=== PATIENT | male | born 1945 | race Caucasian/White ===

== ENCOUNTER 2017-01-19 08:44 | Emergency (ER) | payer OTHER ==
[~2017-01-19] VITALS: Ht 177.8 cm; Wt 91.0 kg
[~2017-01-19 08:44] MED LIST: ADULT LOW DOSE81 M1 PO; ALPRAZOLAM0.25 M2 PO; AMITRIPTYLINE H25 MG PO; AMLODIPINE BESYL5 MG PO; ANTIVERT25 MG PO; ASPIR 8181 M1 PO; ASPIR-LOW81 MG PO; BACLOFEN10 MG PO; CENTRUM SILVER1 EAC1 PO; CENTRUM SILVER1 EAC3 PO; CRESTOR40 MG PO; ENDOCET 7.5-321 EACH PO; FERREX 150150 MG PO; FLOMAX0.4 MG PO; GABAPENTIN100 MG PO; GABAPENTIN300 MG PO; HYDROCODON-ACE1 EAC7 PO; K-DUR20 MEQ PO; LIPITOR80 MG PO; LOFIBRA,TRIGLI160 MG PO; LORTAB 5-325 M1 EACH PO; METOCLOPRAMIDE10 MG PO; METOPROLOL SUCC25 MG PO; METOPROLOL TART25 MG PO; METOPROLOL TART50 MG PO; MIRALAX17 GM PO; MOBIC7.5 MG PO; NEXIUM20 MG PO; NIFEREX-150,FE150 MG PO; OMEPRAZOLE40 M1 PO; ONDANSETRON HCL4 MG PO; OXYCODONE-APAP1 EAC6 PO; PERCOCET 5/31 TABLET PO; PLENDIL5 M1 PO; PREDNISONE20 MG PO; PROMETHAZINE HC25 M1 PO; SERTRALINE HCL50 MG PO; SUCRALFATE1 GM PO; VALACYCLOVIR500 MG PO; VALIUM2 MG PO; XANAX0.25 MG PO; ZANTAC150 MG PO; ZOFRAN ODT4 MG PO; ZOLOFT50 MG PO
[2017-01-19 09:07] LABS: MCH 29.5 PG (29.0-34.0); MCHC 33.3 G/DL (30.0-36.0); MCV 88.6 FL (86-99); PLATELET COUNT 128 K/uL (156-360); RBC DIS.WIDTH-CV 12.7 % (11.8-14.6); RBC DIS.WIDTH-SD 41.7 % (39-53); RED BLOOD COUNT 4.74 M/uL (4.00-5.50); WHITE BLOOD COUNT 4.8 K/uL (4.1-10.2)
[2017-01-19 09:12] LABS: ADD MIUA? YES; BILIRUBIN NEGATIVE; BLOOD LARGE; COLOR AMBER ((YELLOW)); GLUCOSE (STRIP) NEGATIVE; KETONES 5; LEUKOCYTES NEGATIVE; NITRITE NEGATIVE; PROTEIN (STRIP) 100; UROBILINOGEN 0.2 MG/DL (0.2-1.0)
[2017-01-19 09:17] LABS: CHLORIDE 108 mEq/L (99-109); POTASSIUM 4.6 mEq/L (3.7-5.4); SODIUM 144 mEq/L (136-147)
[2017-01-19 09:19] LABS: GLUCOSE 102 mg/dL (70-99)
[2017-01-19 09:20] LABS: ANION GAP 10 MEQ/L (2-14)
[2017-01-19 09:23] LABS: GFR ESTIMATE (CALCULATED) > 59 mL/min/
[2017-01-19 09:24] LABS: UREA NITROGEN (BUN) 14 mg/dL (9-23)
[2017-01-19 09:29] LABS: BACTERIA RARE /HPF; CALCIUM OXALATE CRYSTALS 3+ /HPF; EPITHELIAL CELLS NONE SEEN /HPF; MUCUS 4+ /LPF; RED BLOOD CELLS TNTC /HPF (0-5); UCUL ADDED? NO
[2017-01-19] MEDS ORDERED: ZOFRAN ODT4 MG PO (13:00)
[2017-01-19] MEDS ORDERED: PERCOCET 5/31 TABLET PO (13:00)
[2017-01-19] MEDS ORDERED: CIPRO500 MG PO (13:00)
[2017-01-19] MEDS ORDERED: FLOMAX0.4 MG PO (13:00)
[2017-01-19 14:11] VITALS: BP 133/82
== END 2017-01-19 14:12 | disposition home or self-care (01) ==
LOC: EME 08:44
DX: N13.2 Hydronephrosis with renal and ureteral calculous obstruction (principal); Z87.442 Personal history of urinary calculi; E78.5 Hyperlipidemia, unspecified; Z90.49 Acquired absence of other specified parts of digestive tract; Z95.5 Presence of coronary angioplasty implant and graft; Z79.82 Long term (current) use of aspirin
CPT/HCPCS: 74176; 80048; 81003; 85027; 99281; 99284; J1885; J2270; J2405; J7030

== ENCOUNTER 2017-01-23 07:53 | Day surgery (SDC) | payer OTHER ==
[~2017-01-23] VITALS: Ht 177.8 cm; Wt 91.4 kg
[~2017-01-23 07:53] MED LIST changes: +CIPRO500 MG PO
[2017-01-23 08:28] LABS: HEMATOCRIT 40.1 % (38.0-50.0); MCH 29.1 PG (29.0-34.0); MCHC 32.9 G/DL (30.0-36.0); MCV 88.3 FL (86-99); MEAN PLAT.VOLUME 9.5 uM^3 (9.0-12.4); PLATELET COUNT 122 K/uL (156-360); RBC DIS.WIDTH-CV 12.8 % (11.8-14.6); RBC DIS.WIDTH-SD 41.3 % (39-53); RED BLOOD COUNT 4.54 M/uL (4.00-5.50); WHITE BLOOD COUNT 5.3 K/uL (4.1-10.2)
[2017-01-23 08:42] LABS: CHLORIDE 108 mEq/L (99-109); POTASSIUM 3.7 mEq/L (3.7-5.4); SODIUM 143 mEq/L (136-147)
[2017-01-23 08:43] LABS: GLUCOSE 175 mg/dL (70-99)
[2017-01-23 08:45] LABS: ANION GAP 12 MEQ/L (2-14)
[2017-01-23 08:47] LABS: GFR ESTIMATE (CALCULATED) > 59 mL/min/
[2017-01-23 08:48] LABS: UREA NITROGEN (BUN) 14 mg/dL (9-23)
[2017-01-23 09:38] LABS: ADD MIUA? YES; BILIRUBIN NEGATIVE; BLOOD MODERATE; COLOR YELLOW ((YELLOW)); GLUCOSE (STRIP) NEGATIVE; KETONES NEGATIVE; LEUKOCYTES NEGATIVE; NITRITE NEGATIVE; PROTEIN (STRIP) 30; SPECIFIC GRAVITY 1.021 (1.000-1.030); UROBILINOGEN 0.2 MG/DL (0.2-1.0)
[2017-01-23 09:47] LABS: BACTERIA NONE SEEN /HPF; EPITHELIAL CELLS NONE SEEN /HPF; HYALINE CASTS 0-5 /LPF; MUCUS 1+ /LPF; RED BLOOD CELLS 20-30 /HPF (0-5); UCUL ADDED? NO; WHITE BLOOD CELLS 0-5 /HPF (0-5)
[2017-01-23] MEDS ORDERED: NORVASC5 MG PO (12:15)
[2017-01-23] MEDS ORDERED: CIPROFLOXACIN500 M1 PO (12:16)
[2017-01-23] MEDS ORDERED: AMBIEN10 MG PO (12:18)
[2017-01-23] MEDS ORDERED: TAMSULOSIN HCL0.4 MG PO (12:18)
[2017-01-23 15:10] VITALS: BP 145/83
[2017-01-23 15:30] VITALS: BP 135/78
== END 2017-01-23 15:45 | disposition home or self-care (01) ==
LOC: EME 07:53 → SDC 13:29
PROVIDERS: Emergency Medicine
PROC: 0T768DZ Dilation of Right Ureter with Intraluminal Device, Via Natural or Artificial Opening Endoscopic (ICD-10-PCS; principal; 2017-01-23)
PROC: 0TJB8ZZ Inspection of Bladder, Via Natural or Artificial Opening Endoscopic (ICD-10-PCS; 2017-01-23)
DX: N13.2 Hydronephrosis with renal and ureteral calculous obstruction (principal); I47.1 Supraventricular tachycardia; I25.10 Atherosclerotic heart disease of native coronary artery without angina pectoris; I10 Essential (primary) hypertension; Z87.442 Personal history of urinary calculi; Z85.828 Personal history of other malignant neoplasm of skin; Z95.5 Presence of coronary angioplasty implant and graft
CPT/HCPCS: 74000; 76000; 80048; 81003; 85027; 99281; 99285; C1876; J1100; J1885; J2270; J2405; J3010; J7030

== ENCOUNTER 2017-01-25 09:08 | Emergency (ER) | payer OTHER ==
[~2017-01-25] VITALS: Ht 165.1 cm; Wt 90.5 kg
[~2017-01-25 09:08] MED LIST changes: +AMBIEN10 MG PO; +CIPROFLOXACIN500 M1 PO; +NORVASC5 MG PO; +TAMSULOSIN HCL0.4 MG PO
[2017-01-25 10:15] LABS: ADD MIUA? YES; BILIRUBIN NEGATIVE; BLOOD LARGE; GLUCOSE (STRIP) NEGATIVE; KETONES NEGATIVE; LEUKOCYTES TRACE; NITRITE NEGATIVE; PROTEIN (STRIP) 100; SPECIFIC GRAVITY 1.015 (1.000-1.030); UROBILINOGEN 0.2 MG/DL (0.2-1.0)
[2017-01-25 10:16] LABS: COLOR RED ((YELLOW))
[2017-01-25 10:22] LABS: BACTERIA NONE SEEN /HPF; EPITHELIAL CELLS NONE SEEN /HPF; MUCUS NONE SEEN /LPF; RED BLOOD CELLS TNTC /HPF (0-5); UCUL ADDED? NO
[2017-01-25 10:24] LABS: HEMATOCRIT 39.9 % (38.0-50.0); MCH 29.4 PG (29.0-34.0); MCHC 33.1 G/DL (30.0-36.0); MCV 88.9 FL (86-99); PLATELET COUNT 152 K/uL (156-360); RBC DIS.WIDTH-SD 42.3 % (39-53); RED BLOOD COUNT 4.49 M/uL (4.00-5.50); WHITE BLOOD COUNT 8.1 K/uL (4.1-10.2)
[2017-01-25 10:34] LABS: CHLORIDE 107 mEq/L (99-109); POTASSIUM 3.8 mEq/L (3.7-5.4); SODIUM 141 mEq/L (136-147)
[2017-01-25 10:37] LABS: GLUCOSE 105 mg/dL (70-99)
[2017-01-25 10:38] LABS: ANION GAP 8 MEQ/L (2-14)
[2017-01-25 10:40] LABS: GFR ESTIMATE (CALCULATED) > 59 mL/min/
[2017-01-25 10:41] LABS: UREA NITROGEN (BUN) 12 mg/dL (9-23)
[2017-01-25] MEDS ORDERED: PERCOCET 5/31 TABLET PO (13:37)
[2017-01-25 14:01] VITALS: BP 132/74
== END 2017-01-25 14:01 | disposition home or self-care (01) ==
LOC: EME 09:08
DX: N20.0 Calculus of kidney (principal); E78.5 Hyperlipidemia, unspecified; I10 Essential (primary) hypertension; Z95.5 Presence of coronary angioplasty implant and graft
CPT/HCPCS: 74177; 80048; 81003; 85027; 99281; 99285; J1885; J2270; J2405; J7030

== ENCOUNTER 2017-02-28 01:10 | Emergency (ER) | payer OTHER ==
[~2017-02-28] VITALS: Ht 177.8 cm; Wt 88.2 kg
[2017-02-28 01:37] LABS: MCH 29.2 PG (29.0-34.0); MCHC 33.2 G/DL (30.0-36.0); MCV 88.2 FL (86-99); MEAN PLAT.VOLUME 9.2 uM^3 (9.0-12.4); PLATELET COUNT 119 K/uL (156-360); RBC DIS.WIDTH-CV 12.5 % (11.8-14.6); RBC DIS.WIDTH-SD 40.1 % (39-53); RED BLOOD COUNT 4.65 M/uL (4.00-5.50); WHITE BLOOD COUNT 6.3 K/uL (4.1-10.2)
[2017-02-28 01:41] LABS: ADD MIUA? NO; BILIRUBIN NEGATIVE; BLOOD NEGATIVE; COLOR YELLOW ((YELLOW)); GLUCOSE (STRIP) NEGATIVE; KETONES NEGATIVE; LEUKOCYTES NEGATIVE; NITRITE NEGATIVE; PROTEIN (STRIP) NEGATIVE; SPECIFIC GRAVITY 1.023 (1.000-1.030); UCUL ADDED? NO; UROBILINOGEN 0.2 MG/DL (0.2-1.0)
[2017-02-28 01:56] LABS: CHLORIDE 109 mEq/L (99-109); POTASSIUM 4.1 mEq/L (3.7-5.4); SODIUM 143 mEq/L (136-147)
[2017-02-28 01:58] LABS: GLUCOSE 125 mg/dL (70-99)
[2017-02-28 01:59] LABS: ANION GAP 7 MEQ/L (2-14)
[2017-02-28 02:00] LABS: TOTAL BILIRUBIN 0.5 mg/dL (0.0-1.0)
[2017-02-28 02:01] LABS: ALKALINE PHOSPHATASE 99 IU/L (3-129)
[2017-02-28 02:02] LABS: GFR ESTIMATE (CALCULATED) > 59 mL/min/
[2017-02-28 02:03] LABS: UREA NITROGEN (BUN) 17 mg/dL (9-23)
[2017-02-28 02:27] LABS: LIPASE 35 U/L (1.0-51.0)
[2017-02-28] MEDS ORDERED: FLOMAX0.4 MG PO (05:34)
[2017-02-28] MEDS ORDERED: ZOFRAN8 MG PO (05:34)
[2017-02-28] MEDS ORDERED: NORCO 5/3251 TABLET PO (05:34)
[2017-02-28 05:45] VITALS: BP 138/78
== END 2017-02-28 05:45 | disposition home or self-care (01) ==
LOC: EME 01:10
DX: N20.1 Calculus of ureter (principal); I10 Essential (primary) hypertension; E78.5 Hyperlipidemia, unspecified; Z87.442 Personal history of urinary calculi
CPT/HCPCS: 74176; 80053; 81003; 83690; 85027; J1885; J2270; J7030

== ENCOUNTER 2017-04-27 23:29 | Emergency (ER) | payer OTHER ==
[~2017-04-27] VITALS: Ht 177.8 cm; Wt 87.7 kg
[~2017-04-27 23:29] MED LIST changes: +NORCO 5/3251 TABLET PO; +ZOFRAN8 MG PO
[2017-04-28] MEDS ORDERED: KEFLEX500 MG PO (00:30)
[2017-04-28 00:50] VITALS: BP 156/90
== END 2017-04-28 00:50 | disposition home or self-care (01) ==
LOC: EME 23:29
DX: S80.861A Insect bite (nonvenomous), right lower leg, initial encounter (principal); S80.862A Insect bite (nonvenomous), left lower leg, initial encounter; L03.115 Cellulitis of right lower limb; L03.116 Cellulitis of left lower limb; W57.XXXA Bitten or stung by nonvenomous insect and other nonvenomous arthropods, initial encounter; E78.5 Hyperlipidemia, unspecified; I10 Essential (primary) hypertension; Z95.5 Presence of coronary angioplasty implant and graft
CPT/HCPCS: 99281; 99283

== ENCOUNTER 2018-03-24 00:32 | Emergency (ER) | payer OTHER ==
[~2018-03-24] VITALS: Ht 177.8 cm; Wt 89.8 kg
[~2018-03-24 00:32] MED LIST changes: +KEFLEX500 MG PO
[2018-03-24 01:11] LABS: CHLORIDE 106 mEq/L (99-109)
[2018-03-24 01:12] LABS: POTASSIUM 3.7 mEq/L (3.7-5.4); SODIUM 141 mEq/L (136-147)
[2018-03-24 01:13] LABS: GLUCOSE 116 mg/dL (70-99)
[2018-03-24 01:17] LABS: GFR ESTIMATE (CALCULATED) > 59 mL/min/ (58.99-99999)
[2018-03-24 01:18] LABS: UREA NITROGEN (BUN) 12 mg/dL (9-23)
[2018-03-24 01:43] LABS: HEMATOCRIT 41.3 % (38.0-50.0); HEMOGLOBIN 14.1 G/DL (12.5-16.6); MCH 30.4 PG (29.0-34.0); MCHC 34.1 G/DL (30.0-36.0); PLATELET COUNT 116 K/uL (156-360); RBC DIS.WIDTH-CV 12.6 % (11.8-14.6); RBC DIS.WIDTH-SD 41.1 % (39-53); RED BLOOD COUNT 4.64 M/uL (4.00-5.50); WHITE BLOOD COUNT 7.4 K/uL (4.1-10.2)
[2018-03-24 02:51] LABS: TROP-I INTERPRETATION NEGATIVE; TROPONIN-I < 0.01 ng/mL (0.0-0.30)
[2018-03-24] MEDS ORDERED: ULTRAM50 MG PO (04:25)
[2018-03-24 04:50] VITALS: BP 167/88
== END 2018-03-24 04:50 | disposition home or self-care (01) ==
LOC: EME 00:32
DX: R42 Dizziness and giddiness (principal); S09.90XA Unspecified injury of head, initial encounter; S30.0XXA Contusion of lower back and pelvis, initial encounter; W06.XXXA Fall from bed, initial encounter; E78.5 Hyperlipidemia, unspecified; I10 Essential (primary) hypertension; Z87.442 Personal history of urinary calculi; Z85.828 Personal history of other malignant neoplasm of skin; Z95.5 Presence of coronary angioplasty implant and graft
CPT/HCPCS: 70450; 71046; 72100; 72125; 80048; 84484; 85027; 93005; 99281; 99285; J7030